=== PATIENT | female | born 1980 | race Hispanic/Latino ===

== ENCOUNTER 2019-04-28 05:35 | Day surgery (SDC) | payer MEDICAID ==
[2019-04-26 11:41] VITALS: BP 144/63
[2019-04-26 12:01] LABS: BASOPHILS % (AUTO) 0.5 % (0.0-5.0); HEMATOCRIT 39.6 % (36-48); LYMPHOCYTES % (AUTO) 19.9 % (21.0-51.0); MEAN CORPUSCULAR HEMOGLOBIN 22.2 pg (27.0-33.0); MEAN CORPUSCULAR VOLUME 71.7 fL (79-99); NEUTROPHILS % (AUTO) 69.6 % (40.0-77.0); PLATELET COUNT (AUTO) 223 K/uL (130-400); RED BLOOD CELL COUNT(AUTO) 5.52 MIL/uL (4.00-5.50)
[2019-04-26 12:02] LABS: APPEARANCE,URINE Clear (CLEAR); BILIRUBIN,URINE Negative (NEGATIVE); COLOR,URINE Yellow (YELLOW); GLUCOSE, URINE (UA) Negative (NEGATIVE); KETONES,URINE Negative (NEGATIVE); LEUKOCYTE ESTERASE ,URINE Negative (NEGATIVE); NITRATE,URINE Negative (NEGATIVE); OCCULT BLOOD,URINE Negative (NEGATIVE); PH,URINE 5.5 (5.0-8.0); PROTEIN,URINE Negative (NEGATIVE)
[2019-04-26 12:12] LABS: HEMOGLOBIN A1C 6.6 % (4.0-6.0); INR 0.98 (0.85-1.15); PARTIAL THROMBOPLASTIN TIME 29.4 SEC (26.3-35.5); PROTHROMBIN TIME 10.3 SEC (9.6-11.6)
[2019-04-26 12:26] LABS: B-TYPE NATRIURETIC PEPTIDE 151 pg/mL (0-100)
[2019-04-26 12:27] LABS: CREATININE 0.6 mg/dL (0.5-1.5); POTASSIUM 4.4 mmol/L (3.5-5.1)
[2019-04-26 12:31] LABS: ALBUMIN 3.4 g/dL (3.5-5.0); BILIRUBIN,TOTAL 0.4 mg/dL (0.2-1.0); CREATININE 0.6 mg/dL (0.5-1.5); POTASSIUM 4.4 mmol/L (3.5-5.1); THYROID STIMULATING HORMONE 1.99 uIU/mL (0.36-3.74); TOTAL PROTEIN, SERUM 7.7 g/dL (6.0-8.3)
--- NOTE | 2019-04-27 15:16 | NUR ---
XRAY ABNORMAL CHEST XRAY REPORTED TO Albert LAWLER MANAGER OF RADIOLOGY HAND BINDERY ASSEMBLY WORKER FOR DR. SAGASTUME. NO FURTHER ORDERS GIVEN
[2019-04-28] VITALS (9 sets, daily range): BP systolic 133–145; BP diastolic 61–74
[~2019-04-28] VITALS: Ht 167.6 cm; Wt 128.3 kg
[~2019-04-28 05:35] MED LIST: APIX2.5T PO; ASPI-1026 PO; CARV12.511 PO; ESCI10TA54 PO; FURO20TA4 PO; LISI-617 PO; METF500S7 PO
--- NOTE | 2019-04-28 06:15 | NUR ---
PT ARRIVED PATIENT ARRIVED TO DAY PATIENT ACCOMPANIED BY FRIEND (SHAYLA). PATIENT AAO X 3, RESPIRATIONS UNLABORED, PATIENT DENIES ANY PAIN AT THIS TIME. PROCEDURE AND PHYSICIAN VERIFIED WITH PATIENT. PROCEDURE EXPLAINED TO PATIENT AND PATIENT VERIFIES UNDERSTANDING. ALL QUESTIONS/CONCERNS ADDRESSED.
[2019-04-28] MEDS ORDERED: METF-444 PO (07:13)
[2019-04-28] MEDS ORDERED: SODIUM CHLORIDE 0.9% 1000ML 1,000 ML IV ONE (07:57)
[2019-04-28] MEDS ORDERED: IOHEXOL 350 MG/ML 100ML INFUS..BTL IV ONE (08:23)
[2019-04-28] MEDS ORDERED: IOHEXOL-350 50ML VIAL IV ONE (08:23)
[2019-04-28] MEDS ORDERED: LIDOCAINE HCL 2% 20ML ONE (08:24)
--- NOTE | 2019-04-28 08:30 | NUR ---
PATIENT TRANSFERRED PATIENT TAKEN TO LEGAL SECRETARY VIA BED BY KALEE MCKEON AND CHEL EVANS RN. PATIENT'S FRIEND INSTRUCTED TO WAIT IN ROOM SO MD CAN SPEAK WITH HIM ONCE PROCEDURE IS COMPLETE, VERBALIZED UNDERSTANDING.
[2019-04-28] MEDS ORDERED: MIDAZOLAM HCL 1 MG/ML 2ML VIAL ONE (08:44)
[2019-04-28] MEDS ORDERED: GLUCAGON 1MG KIT 1 MG ML IM PRN (09:15)
[2019-04-28] MEDS ORDERED: DEXTROSE 50%-WATER 50 ML DISP.SYRIN IV PRN (09:15)
--- NOTE | 2019-04-28 09:25 | NUR ---
PATIENT RETURNED PATIENT BROUGHT BACK FROM SALES AND MARKETING COORDINATOR BY KALEE MCKEON. PATIENT AAOX3, RESPIRATIONS UNLABORED, VITAL SIGNS STABLE. RIGHT GROIN WITH DRESSING IN PLACE, DRESSING DRY AND INTACT WITH NO BLEEDING/DRAINAGE NOTED. PEDAL PULSES PRESENT BILATERALLY. DENIES ANY PAIN AT THIS TIME, FAMILY AT BEDSIDE.
[2019-04-28] MEDS ORDERED: ACETAMINOPHEN 325 MG TAB PO SCH (10:45)
--- NOTE | 2019-04-28 13:20 | NUR ---
PATIENT DISCHARGED DISCHARGE INSTRUCTIONS PROVIDED TO PATIENT AND SPOUSE. FOLLOW UP APPOINTMENT PROVIDED AND INSTRUCTIONS ON DRAIN CARE WERE EXPLAINED. PATIENT/SPOUSE VERBALIZED UNDERSTANDING, ALL QUESTIONS/CONCERNS ADDRESSED. PATIENT TAKEN TO PRIVATE CAR VIA WHEELCHAIR. Addendum: 04/28/19 at 1555 by VERO RAMOS RN RN ENTERED IN ERROR, WRONG PATIENT
--- NOTE | 2019-04-28 13:20 | NUR ---
PATIENT DISCHARGED DISCHARGE INSTRUCTION PROVIDED TO PATIENT AND PATIENT'S FRIEND. FOLLOW UP APPOINTMENT PROVIDED AND FEMORAL SITE CARE EXPLAINED. S/S TO MONITOR AND REPORT WERE EXPLAINED. PATIENT AND PATIENT'S FRIEND VERBALIZED UNDERSTANDING. ALL QUESTIONS/CONCERNS ADDRESSED. PATIENT TAKEN TO PRIVATE VEHICLE VIA WHEELCHAIR.
== END 2019-04-28 13:20 ==
LOC: DAH 05:35
PROVIDERS: ATTEND Internal Medicine Cardiovascular Disease
DX: I25.10 Atherosclerotic heart disease of native coronary artery without angina pectoris (principal); I10 Essential (primary) hypertension; F32.9 Major depressive disorder, single episode, unspecified; E66.01 Morbid (severe) obesity due to excess calories; I42.0 Dilated cardiomyopathy; E11.9 Type 2 diabetes mellitus without complications; Z68.42 Body mass index [BMI] 45.0-49.9, adult; Z79.01 Long term (current) use of anticoagulants; Z79.899 Other long term (current) drug therapy; Z79.82 Long term (current) use of aspirin; Z98.890 Other specified postprocedural states; Z82.49 Family history of ischemic heart disease and other diseases of the circulatory system
CPT/HCPCS: 36415; 71045; 80053; 80061; 81003; 82306; 82948 ×2; 83036; 83880; 84443; 84703; 85025; 85610; 85730; 93005; 93454; A4606; C1760; C1894; J1644; J2250; J3490; J7030; Q9965; Q9967; 80048; 99156; 99157

== ENCOUNTER → 2019-07-17 | Outpatient (CLI) | payer MEDICAID ==
[~2019-07-17] MED LIST changes: +METF-444 PO; -METF500S7 PO
== END | disposition home or self-care (01) ==
LOC: SHCH 13:28
PROVIDERS: ATTEND Internal Medicine Cardiovascular Disease
DX: I11.9 Hypertensive heart disease without heart failure (principal); I42.9 Cardiomyopathy, unspecified
CPT/HCPCS: 93306

== ENCOUNTER 2020-02-06 07:18 | Observation (INO) | payer MEDICAID ==
[2020-02-06] VITALS (12 sets, daily range): BP systolic 118–176; BP diastolic 75–110
[~2020-02-06] VITALS: Ht 170.2 cm; Wt 150.8 kg
[~2020-02-06 07:18] MED LIST changes: -APIX2.5T PO; -ASPI-1026 PO; -CARV12.511 PO; +CARV25TA PO; +CETI10TA57 PO; -FURO20TA4 PO; +LEVO5TAB13 PO; +LISI-613 PO; -LISI-617 PO; +LORA10TA7 PO; +METO-408 PO; +ONDA4TAB10 PO; +SPIR25TA6 PO; +VITAMIN D PO
[2020-02-06 07:58] LABS: BASOPHILS % (AUTO) 0.3 % (0.0-5.0); EOSINOPHILS % (AUTO) 2.2 % (0.0-8.0); HEMATOCRIT 38.5 % (36-48); LYMPHOCYTES % (AUTO) 15.8 % (21.0-51.0); MEAN CORPUSCULAR HEMOGLOBIN 24.4 pg (27.0-33.0); MEAN CORPUSCULAR HGB CONC 31.2 g/dL (32.0-36.0); MEAN CORPUSCULAR VOLUME 78.4 fL (79-99); MONOCYTES % (AUTO) 6.3 % (3.0-13.0); NEUTROPHILS % (AUTO) 74.6 % (40.0-77.0); PLATELET COUNT (AUTO) 264 K/uL (130-400); RED BLOOD CELL COUNT(AUTO) 4.91 MIL/uL (4.00-5.50); RED CELL DISTRIBUTION WIDTH 15.9 % (11.0-15.5); WHITE BLOOD COUNT (AUTO) 10.7 K/uL (4.8-10.8)
[2020-02-06 08:06] LABS: CREATININE 0.7 mg/dL (0.5-1.5); POTASSIUM 3.7 mmol/L (3.5-5.1)
[2020-02-06 08:14] LABS: INR 0.92 (0.85-1.15); PARTIAL THROMBOPLASTIN TIME 27.3 SEC (26.3-35.5)
[2020-02-06] MEDS ORDERED: SODIUM CHLORIDE 0.9% 1000ML 1,000 ML IV ONE (09:21)
[2020-02-06] MEDS ORDERED: IODIXANOL 320 MG/ML 100 ML VIAL ONE (10:39)
[2020-02-06] MEDS ORDERED: CEFAZOLIN SODIUM 1 GM VIAL ONE (10:39)
[2020-02-06] MEDS ORDERED: BUPIVACAINE/PF 0.25% 30ML VIAL IJ ONE (10:39)
[2020-02-06] MEDS ORDERED: MEPERIDINE-PF 25 MG/ML SYG ONE ×6 (10:40→12:33)
[2020-02-06] MEDS ORDERED: MIDAZOLAM HCL 1 MG/ML 2ML VIAL ONE ×6 (10:40→12:33)
[2020-02-06] MEDS ORDERED: LIDOCAINE HCL 1% MDV 50ML VIAL ONE (10:40)
[2020-02-06] MEDS ORDERED: ONDANSETRON ODT 4 MG TAB PO PRN (13:30)
--- NOTE | 2020-02-06 14:00 | NUR ---
DR NUÑEZ NOTIFIED OF ADMISSION INFORMED DR NUÑEZ OF ADMISSION. PATIENT CAME IN FOR OUTPATIENT PROCEDURE. S/P SINGLE LEAD ICD INSERTION BIOTRONIC FOR DIAGNOSIS OF NON ISCHEMIC CARDIOMYOPATHY. MD AWARE NO ORDERS GIVEN.
[2020-02-06] MEDS: ACETAMINOPHEN-CODEINE 300/30MG TAB PO PRN (16:26)
[2020-02-06] MEDS: METFORMIN HCL 500 MG TABLET PO SCH (20:02)
[2020-02-06] MEDS: CARVEDILOL 25 MG TABLET PO SCH (20:03)
[2020-02-06] MEDS ORDERED: GLUCAGON 1MG KIT 1 MG ML IM PRN (21:15)
[2020-02-06] MEDS ORDERED: HYDRALAZINE HCL 20 MG/ML VIAL IV PRN (21:15)
[2020-02-06] MEDS ORDERED: DEXTROSE 50%-WATER 50 ML DISP.SYRIN IV PRN (21:15)
[2020-02-06] MEDS: MORPHINE SULFATE 2 MG/ML 1ML SYG IV PRN ×2 (22:53→23:34)
[2020-02-07] VITALS (7 sets, daily range): BP systolic 115–156; BP diastolic 62–87
[2020-02-07 03:35] LABS: BASOPHILS % (AUTO) 0.2 % (0.0-5.0); EOSINOPHILS % (AUTO) 1.7 % (0.0-8.0); HEMATOCRIT 34.7 % (36-48); LYMPHOCYTES % (AUTO) 12.9 % (21.0-51.0); MEAN CORPUSCULAR HEMOGLOBIN 24.7 pg (27.0-33.0); MEAN CORPUSCULAR HGB CONC 30.8 g/dL (32.0-36.0); MONOCYTES % (AUTO) 5.4 % (3.0-13.0); NEUTROPHILS % (AUTO) 79.4 % (40.0-77.0); PLATELET COUNT (AUTO) 242 K/uL (130-400); RED BLOOD CELL COUNT(AUTO) 4.34 MIL/uL (4.00-5.50); RED CELL DISTRIBUTION WIDTH 15.9 % (11.0-15.5); WHITE BLOOD COUNT (AUTO) 13.2 K/uL (4.8-10.8)
[2020-02-07 03:44] LABS: HEMOGLOBIN A1C 8.6 % (4.0-6.0)
[2020-02-07 03:51] LABS: ALBUMIN 2.9 g/dL (3.5-5.0); BILIRUBIN,TOTAL 0.3 mg/dL (0.2-1.0); CREATININE 0.7 mg/dL (0.5-1.5); POTASSIUM 4.1 mmol/L (3.5-5.1); TOTAL PROTEIN, SERUM 6.9 g/dL (6.0-8.3)
[2020-02-07] MEDS: INSULIN HUMULIN R 100 UNIT/ML 3ML SQ SCH ×4 (05:34→20:05)
[2020-02-07] MEDS: LISINOPRIL 20 MG TABLET PO SCH (08:05)
[2020-02-07] MEDS: LORATADINE 10 MG TABLET PO SCH (08:05)
[2020-02-07] MEDS: **HM** LEVOCETIRIZINE 5MG PO SCH (08:05)
[2020-02-07] MEDS: CARVEDILOL 25 MG TABLET PO SCH ×2 (08:06→20:02)
[2020-02-07] MEDS: CETIRIZINE HCL 5 MG TABLET PO SCH (08:06)
[2020-02-07] MEDS: METFORMIN HCL 500 MG TABLET PO SCH ×2 (08:06→20:02)
[2020-02-07] MEDS: CITALOPRAM 20 MG TABLET PO SCH (08:06)
[2020-02-07] MEDS: SPIRONOLACTONE 25 MG TAB PO SCH (08:06)
[2020-02-07] MEDS: METOPROLOL SUCCINATE 50 MG TAB.SR.24H PO SCH (08:06)
[2020-02-07] MEDS: ACETAMINOPHEN-CODEINE 300/30MG TAB PO PRN (08:15)
--- NOTE | 2020-02-07 09:07 | NUR ---
CM NOTE Chart reviewed, pt in for scheduled out patient procedure, no triggers to case management, no concerns noted by patient or primary RN< will defer detailed CM assessment at this time. Will follow if notified of DC needs. Addendum: 02/07/20 at 0908 by TARAH CHACON RN CM Amended: Links added.
[2020-02-07] MEDS: CEFTRIAXONE SODIUM 1 GM IVP SCH ×2 (09:45→15:13)
--- NOTE | 2020-02-07 13:00 | NUR ---
PT. STATES STILL PENDING TO VOID. ROCEPHIN ADMINISTRATION PENDING.
[2020-02-07 15:42] LABS: APPEARANCE,URINE Clear (CLEAR); BILIRUBIN,URINE Negative (NEGATIVE); COLOR,URINE Yellow (YELLOW); GLUCOSE, URINE (UA) Negative (NEGATIVE); KETONES,URINE Negative (NEGATIVE); LEUKOCYTE ESTERASE ,URINE Negative (NEGATIVE); NITRATE,URINE Negative (NEGATIVE); OCCULT BLOOD,URINE Negative (NEGATIVE); PH,URINE 5.5 (5.0-8.0); PROTEIN,URINE Negative (NEGATIVE); UROBILINOGEN,URINE 0.2 mg/dL (0.2-1.0)
[2020-02-07 16:22] LABS: BACTERIA,URINE Few /HPF (None Seen); RBC,URINE 0-1 /HPF (0-1); SQUAMOUS EPITHELIAL CELL,UR Few /HPF (0-2)
[2020-02-07 16:23] LABS: MUCUS,URINE Few LPF (None Seen)
--- NOTE | 2020-02-07 18:07 | NUR ---
DR. RAJAN IN ROOM WITH PT. FOR C/O RASH.
[2020-02-07] MEDS ORDERED: DIPHENHYDRAMINE HCL 25 MG CAPSULE PO SCH (19:20)
[2020-02-08 04:00] VITALS: BP 116/73
[2020-02-08] MEDS ORDERED: DIPHENHYDRAMINE HCL 25 MG CAPSULE PO PRN (04:15)
[2020-02-08 04:20] LABS: HEMATOCRIT 33.2 % (36-48); MEAN CORPUSCULAR HEMOGLOBIN 24.5 pg (27.0-33.0); MEAN CORPUSCULAR HGB CONC 30.4 g/dL (32.0-36.0); MEAN CORPUSCULAR VOLUME 80.4 fL (79-99); PLATELET COUNT (AUTO) 221 K/uL (130-400); RED BLOOD CELL COUNT(AUTO) 4.13 MIL/uL (4.00-5.50); RED CELL DISTRIBUTION WIDTH 16.2 % (11.0-15.5); WHITE BLOOD COUNT (AUTO) 11.1 K/uL (4.8-10.8)
[2020-02-08 05:14] LABS: ALANINE AMINOTRANSFERASE 15 U/L (12-78); ALBUMIN 2.8 g/dL (3.5-5.0); ASPARTATE AMINOTRANSFERASE 16 U/L (10-37); BILIRUBIN,TOTAL 0.2 mg/dL (0.2-1.0); CARBON DIOXIDE 28 mmol/L (21-32); CHLORIDE 102 mmol/L (101-111); CREATININE 0.7 mg/dL (0.5-1.5); GLOMERULAR FILTR. RATE CALC 99 mL/min (>60); GLUCOSE,RANDOM 156 mg/dL (70-105); POTASSIUM 3.9 mmol/L (3.5-5.1); SODIUM SERUM 137 mmol/L (136-145); TOTAL PROTEIN, SERUM 6.6 g/dL (6.0-8.3); UREA NITROGEN, BLOOD 13 mg/dL (7-18)
[2020-02-08 05:33] LABS: BILIRUBIN,DIRECT 0.1 mg/dL (0.0-0.3)
[2020-02-08] MEDS: INSULIN HUMULIN R 100 UNIT/ML 3ML SQ SCH ×2 (06:11→11:35)
[2020-02-08 06:20] LABS: BAND NEUTROPHILS % (MANUAL) 7 % (0-2); EOSINOPHILS % (MANUAL) 1 % (1-6); LYMPHOCYTES % (MANUAL) 8 % (22-44); MONOCYTES % (MANUAL) 4 % (2-9); REACTIVE LYMPHOCYTES 2 % (0-0); SEGMENTED NEUTROPHILS % 78 % (40-70)
[2020-02-08 06:21] LABS: MAN.DIFF COMMENT-IMPRESSION MANUAL DIFFERENTIAL; PLATELET MORPHOLOGY COMMENT ADEQUATE
[2020-02-08 08:09] VITALS: BP 137/80
[2020-02-08] MEDS: SPIRONOLACTONE 25 MG TAB PO SCH (08:49)
[2020-02-08] MEDS: METFORMIN HCL 500 MG TABLET PO SCH (08:49)
[2020-02-08] MEDS: METOPROLOL SUCCINATE 50 MG TAB.SR.24H PO SCH (08:50)
[2020-02-08] MEDS: LISINOPRIL 20 MG TABLET PO SCH (08:51)
[2020-02-08] MEDS: LORATADINE 10 MG TABLET PO SCH (08:51)
[2020-02-08] MEDS: CETIRIZINE HCL 5 MG TABLET PO SCH (08:51)
[2020-02-08] MEDS: CARVEDILOL 25 MG TABLET PO SCH (08:52)
[2020-02-08] MEDS: CITALOPRAM 20 MG TABLET PO SCH (08:52)
[2020-02-08] MEDS: **HM** LEVOCETIRIZINE 5MG PO SCH (08:53)
[2020-02-08 11:45] VITALS: BP 139/84
[2020-02-08] MEDS ORDERED: NITROFURANTOIN MONOHYD/M-CRYST 100 MG CAPSULE PO SCH ×2 (12:15→21:00)
--- NOTE | 2020-02-08 15:00 | NUR ---
NO ADVERSE REACTION NOTED FROM MACROBID ADMINISTRATION.
--- NOTE | 2020-02-08 16:00 | NUR ---
HL REMOVED, CATHETER INTACT. DISCHARGE INSTRUCTIONS GIVEN, PT. VERBALIZED UNDERSTANDING. ALSO PROVIDED WITH SUPPLIES FOR DRSG CHANGES AND INSTRUCTED ORDERED BY Asya HUNTER PA-C.
== END 2020-02-08 16:20 | disposition home or self-care (01) ==
LOC: CLH 07:18 → DAH 07:18 → DAHIP 07:19 → CLH 07:19 → 4BH 14:03 → 4AH 20:11
PROVIDERS: ADMIT Internal Medicine; ATTEND Internal Medicine
DX: I11.0 Hypertensive heart disease with heart failure (principal); I50.22 Chronic systolic (congestive) heart failure; G47.33 Obstructive sleep apnea (adult) (pediatric); I42.8 Other cardiomyopathies; I25.10 Atherosclerotic heart disease of native coronary artery without angina pectoris; E11.65 Type 2 diabetes mellitus with hyperglycemia; D72.829 Elevated white blood cell count, unspecified; E66.01 Morbid (severe) obesity due to excess calories; Z95.810 Presence of automatic (implantable) cardiac defibrillator; Z68.42 Body mass index [BMI] 45.0-49.9, adult
CPT/HCPCS: 33249; 36415 ×3; 71045; 80048 ×2; 80053; 80061; 80076; 81001; 82948 ×9; 83036; 83880; 84145 ×2; 85025 ×3; 85610; 85730; 87040 ×2; 87088; 93005; 96372 ×2; 96374; 96375; A4215; A4216; A4221; A4222; A4223 ×3; A4606; A4663; C1722; C1769; C1894; C1895; G0378 ×18; J0690; J0696; J1815 ×2; J2175 ×6; J2250 ×6; J3490 ×2; J7030; Q0163 ×2; 99156; 99157; Q9967